=== PATIENT | female | born 1950 | race Two or more races ===

== ENCOUNTER 2024-08-23 12:58 | Emergency (ER) | payer MEDICARE ==
[~2024-08-23] VITALS: Ht 149.9 cm; Wt 74.6 kg
[2024-08-23 14:20] VITALS: BP 161/46; PULSE 57; RESP 16; TEMP 98; O2SAT 98
--- NOTE | 2024-08-23 14:40 | ED.PDOC ---
History of Present Illness HPI Comments A 74Y FEMALE PRESENTS TO ED FOR CHIEF COMPLAINT LEFT BREAST BURNING SENSATION THAT RADIATES DOWN LEFT ARM. PT STATES SHE HAS BEEN EXPERIENCING THE BURNING SENSATION FOR ONE YEAR. MAMMOGRAM AND XRAY WERE RECENTLY DONE (PER [id number]) AND THEY HAVE NOT RECEIVED RESULTS. PT DENIES SOB, CHEST PAIN, HEADACHE, DIZZINESS, NAUSEA, VOMITING AND OTHER COMPLAINTS. NO OTHER SYMPTOMS REPORTED AT THIS TIME OF CARE. PATIENT IS ALERT, ORIENTED X 4, AND HAS STEADY GAIT. Chief Complaint: Breast pain Time Seen by MD: 14:25 Primary Care Provider: NONE Reviewed Notes: Nurses Notes, Medications, Allergies Allergies: Coded Allergies: NO KNOWN ALLERGIES (Unverified , 08/23/24) Information Source: Patient, Relative Mode of Arrival: Ambulatory Severity: Mild Timing: Months Duration: Since onset Medication Refill: For: Other (LEFT BREAST BURNING SENSATION ) Past Medical History PAST MEDICAL HISTORY: Denies Surgical History: Denies all surgeries [employer] History: Denies all [employer] Hx Family History Family History: Unknown Social History Smoker: Non-Smoker Alcohol: Denies ETOH Use Drugs: Denies Drug Use Lives In: Home Constitutional: denies: chills, diaphoresis, fatigue, fever, malaise, sweats, weakness, others EENTM: denies: blurred vision, double vision, ear bleeding, ear discharge, ear drainage, ear pain, ear ringing, eye pain, eye redness, hearing loss, mouth pain, mouth swelling, nasal discharge, nose bleeding, nose congestion, nose pain, photophobia, tearing, throat pain, throat swelling, voice changes, others Respiratory: denies: cough, hemoptysis, orthopnea, SOB at rest, shortness of breath, SOB with excertion, stridor, wheezing, others Cardiovascular: denies: chest pain, dizzy spells, diaphoresis, Dyspnea on exertion, edema, irregular heart beat, left arm pain, lightheadedness, palpitations, PND, syncope, others Gastrointestinal: denies: abdomen distended, abdominal pain, blood streaked bowels, constipated, diarrhea, dysphagia, difficulty swallowing, hematemesis, melena, nausea, poor appetite, poor fluid intake, rectal bleeding, rectal pain, vomiting, others Genitourinary: denies: abnormal vagina bleeding, burning, dyspareunia, dysuria, flank pain, frequency, hematuria, incontinence, pain, , vagina discharge, urgency, others Neurological: denies: dizziness, fainting, headache, left sided numbness, left sided weakness, numbness, paresthesia, pre-existing deficit, right sided numbness, right sided weakness, seizure, speech problems, tingling, tremors, weakness, others Musculoskeletal: denies: back pain, gout, joint pain, joint swelling, muscle pain, muscle stiffness, neck pain, others Integumetry: reports: others (LT BREAST BURNING SENSATION); denies: bruises, change in color, change in hair/nails, dryness, laceration, lesions, lumps, rash, wounds Allergic/Immunocompromised: denies: Difficulty Healing, Frequent Infections, Hives, Itching, others Hematologic/Lymphatic: denies: anemia, blood clots, easy bleeding, easy bruising, swollen glands, others Endocrine: denies: excessive hunger, excessive sweating, excessive thirst, excessive urination, flushing, intolerance to cold, intolerance to heat, unexplained weight gain, unexplained weight loss, others Psychiatric: reports: anxiety; denies: bipolar disorder, depression, hopeless, panic disorder, schizophrenia, sleepless, suicidal, others All Other Systems: Reviewed and Negative Physical Exam General Appearance: No Apparent Distress, Normal, Other (ANXIOUS ) HEENT: Normal ENT Inspection, PERRL/EOMI, Pharynx Normal, TMs Normal Neck: Full Range of Motion, Non-Tender, Normal, Normal Inspection Respiratory: Chest Non-Tender, Lungs Clear, No Accessory Muscle Use, No Respiratory Distress, Normal Breath Sounds Cardiovascular: No Edema, No JVD, No Murmur, No Gallop, Normal Peripheral Pulses, Regular Rate/Rhythm Breast Exam: (L) Tenderness (MILD TENDERNESS ON LEFT BREAST, NO ERYTHEMA AND SWELLING, NO NODULE AND LUMP PALPABLE. ), Other (NORMAL BREAST EXAM OF RIGHT BR EAST. 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 Was a procedure done?: No Differential Dx Considerations may include: LEFT BREAST BURNING SENSATION, CERVICAL RADICULOPATHY, DDD OF NECK X-Ray, Labs, Meds, VS Vital Signs Date Time Temp Pulse Resp B/P (MAP) Pulse Ox O2 Delivery O2 Flow Rate FiO2 08/23/24 14:20 98.0 57 16 161/46 (84) 98 98.0 08/23/24 14:20 57 16 98 Room Air 08/23/24 13:14 98.0 57 16 161/46 (84) [address] [address] Ph: [phone] DIAGNOSTIC IMAGING Diagnostic Imaging Report : [id number] Signed PATIENT: ROYAL LONGORIA ACCT: [id number] UNIT: [id number] : 1950 LOC: ER ROOM / BED: / AGE / SEX: 74 / F ADM STATUS: REG ER SERVICE 1430 ORDERING PHYSICIAN: BRENDA DON PROCEDURE(s): LBRST - L BREAST ULTRASOUND REASON: BURNING SENSATION WITH POSSIBLE LUMP ORDER NUMBER(s): [id number], ACCESSION NUMBER(s): [id number] US OF THE left BREAST INDICATION: BURNING SENSATION WITH POSSIBLE LUMP TECHNIQUE: All 4 quadrants, subareolar region and axillary region of the left breast were evaluated with ultrasound COMPARISON: None FINDINGS: No solid or suspicious masses. No areas of architectural distortion. No malignant adenopathy. No dominant cysts are present. IMPRESSION: There is no sonographic evidence for malignancy. Annual screening mammography recommended. ACR Bi Rads Category:Category 1 ATED BY: BARNEY HARRIS MD DICTATED DATE/TIME: 08/23/241547 SIGNED BY: BARNEY HARRIS MD SIGNED DATE/TIME: 08/23/241547 CC: [address] [address] Ph: [phone] DIAGNOSTIC IMAGING Diagnostic Imaging Report : [id number] Signed PATIENT: ROYAL LONGORIA ACCT: [id number] UNIT: [id number] : 1950 LOC: ER ROOM / BED: / AGE / SEX: 74 / F ADM STATUS: REG ER SERVICE 1430 ORDERING PHYSICIAN: BRENDA DON PROCEDURE(s): CERV2 - CERVICAL SPINE 3V REASON: NECK PAIN TO LEFT ARM ORDER NUMBER(s): [id number], ACCESSION NUMBER(s): [id number] CLINICAL INDICATION: NECK PAIN TO LEFT ARM TECHNIQUE: 3 radiographic views of the cervical spine were obtained. Comparison: None FINDINGS/IMPRESSION: There is no evidence of acute fracture or dislocation. C1 through C6 is visualized. There are 2 metallic foreign bodies in the anterior soft tissues 2 C5 and C6 not visualized on the AP view. This may be due to patient's undergarments. Narrowing of the C3-4 intervertebral space consistent with degenerative disc changes. The alignment is anatomical. There is no radiopaque foreign body. ATED BY: DIANNA VALENZUELA Jr., DO DICTATED DATE/TIME: 08/23/241536 SIGNED BY: DIANNA VALENZUELA Jr., SIGNED DATE/TIME: 08/23/241536 CC: X-Ray, Labs, Meds, VS Comment COURSE: EXTERNAL MEDICAL RECORDS REVIEWED: [NONE] INDEPENDENT HISTORIANS: [id number] SOCIAL DETERMINANTS OF HEALTH: [NONE] LABS ORDERED: NONE REVIEWED AND INTERPRETED RESULTS: NONE IMAGING ORDERED: LT BREAST ULTRASOUND, C-SPINE X-RAY U/S INTERPRETED BY ME. NO ACUTE FINDINGS. C-SPINE X-RAY INTERPRETED BY ME. PT HAS DDD OF C-SPINE. TREATMENTS ORDERED: NONE PROCEDURES PERFORMED: NONE CRITICAL CARE TIME: NONE I HAVE DISCUSSED THE PATIENT WITH THE ATTENDING PHYSICIAN DR. KAISER LEI AND SHE AGREES WITH THE PATIENT'S PLAN OF CARE AND DISPOSITION. GIVEN THE HISTORY AND PRESENT ILLNESS OF THE PATIENT, AFTER REVIEWING LABS, IMAGING, AND COURSE OF TREATMENT ADMINISTERED DURING THEIR ED VISIT, THERE IS LOW SUSPICION FOR RED FLAG FINDINGS. BASED ON HISTORY OF PRESENT ILLNESS, AND PHYSICAL EXAM, PATIENT WILL BE DISCHARGED HOME. DISCUSSED PLAN FOR DISCHARGE HOME WITH RX. MEDICATION WARNINGS GIVEN. SHARED DECISION MAKING: DISCUSSED WITH PATIENT THAT THEIR WORKUP WAS NORMAL. PATIENT INSTRUCTED TO FOLLOW UP WITH PRIMARY CARE PROVIDER IN 1-2 DAYS FOR RE- EVALUATION OF SYMPTOMS. PATIENT VERBALIZES UNDERSTANDING TO RETURN TO ED FOR NEW OR WORSENING SYMPTOMS OR IF FOLLOW UP WITH PCP CANNOT BE OBTAINED. PATIENT FEELS COMFORTABLE GOING HOME AT THIS TIME. ALL QUESTIONS ADDRESSED AT TIME OF DISCHARGE. Time of 1ST Reevaluation: 16:00 Reevaluation 1ST: Improved Patient Education/Counseling: Diagnosis, Treatment, Need For Follow Up Family Education/Counseling: Diagnosis, Treatment, Need For Follow Up Medical Screening: No EMC Exist At This Time Departure 1 Departure Time of Disposition: 16:00 Impression: Primary Impression: Pain of left breast Additional Impressions: DDD (degenerative disc disease), cervical Cervical radiculopathy Disposition: HOME / SELF CARE / HOMELESS Condition: Stable Additional Instructions: FOLLOW-UP WITH PCP IN 1 TO 2 DAYS. TAKE MEDICATIONS PRESCRIBED. RETURN TO ED FOR ANY NEW OR WORSENING SYMPTOMS. Discharged With: Self, Relative Critical Care Note Critical Care Time?: No Stability Stability form required: No Heart Score Heart Score: Heart Score Response (Comments) Value History N/A 0 EKG N/A 0 Age N/A 0 Risk Factors N/A 0 Troponin N/A 0 Total 0 I personally scribed for BRENDA DON ([email or web address]) on 08/23/24 at 14:40. Electronically submitted by Chantal Richardson ([employer] [employer]). I personally scribed for BRENDA DON ([email or web address]) on 08/23/24 at 15:56. Electronically submitted by Chantal Richardson ([employer]). BRENDA DON Aug 23, 2024 14:40
--- NOTE | 2024-08-23 15:39 | DVH ---
CLINICAL INDICATION: NECK PAIN TO LEFT ARM TECHNIQUE: 3 radiographic views of the cervical spine were obtained. Comparison: None FINDINGS/IMPRESSION: There is no evidence of acute fracture or dislocation. C1 through C6 is visualized. There are 2 metallic foreign bodies in the anterior soft tissues 2 C5 an d C6 not visualized on the AP view. This may be due to patient's undergarments. Narrowing of the C3-4 intervertebral space consistent with degenerative disc changes. The alignment is anatomical. There is no radiopaque foreign body.
--- NOTE | 2024-08-23 15:52 | DVH ---
US OF THE left BREAST INDICATION: BURNING SENSATION WITH POSSIBLE LUMP TECHNIQUE: All 4 quadrants, subareolar region and axillary region of the left breast were evaluated with ultrasound COMPARISON: None FINDINGS: No solid or suspicious masses. No areas of architectural distortion. No malignant adenopathy. No dominant cysts are present. IMPRESSION: There is no sonographic evidence for malignancy. Annual screening mammography recommended. ACR Bi Rads Category:Category 1
== END 2024-08-23 16:03 | disposition home or self-care (01) ==
LOC: ER 12:58
DX: N64.4 Mastodynia (principal); M50.10 Cervical disc disorder with radiculopathy, unspecified cervical region; M79.602 Pain in left arm
CPT/HCPCS: 72040; 76642